=== PATIENT | male | born 2000 | race African-American/Black ===

== ENCOUNTER 2023-09-16 02:12 | Emergency (ER) | payer OTHER ==
[~2023-09-16] VITALS: Ht 172.7 cm; Wt 92.5 kg
[2023-09-16 02:25] VITALS: BP 155/97; PULSE 63; RESP 16; TEMP 97.8; O2SAT 100
[2023-09-16 06:27] VITALS: BP 155/97; PULSE 63; RESP 16; TEMP 97.8; O2SAT 100
== END 2023-09-16 06:27 | disposition left against medical advice (07) ==
LOC: MED 02:12
DX: R07.9 Chest pain, unspecified (principal); Z53.21 Procedure and treatment not carried out due to patient leaving prior to being seen by health care provider
CPT/HCPCS: 93005; 99281